=== PATIENT | female | born 1970 | race Caucasian/White ===

== ENCOUNTER 2022-03-26 05:35 | Emergency (ER) | payer OTHER ==
[2022-03-26 05:47] VITALS: BP 120/81; PULSE 66; TEMP 97.6; BMI 38.2
[2022-03-26] MEDS ORDERED: FAMOTIDINE 20 MG/50 ML IVPB 20 MG/50 ML MG IVPB ONE (05:52)
[2022-03-26] MEDS ORDERED: ACETAMINOPHEN 1000 MG/100 ML BAG IVPB ONE (05:59)
[2022-03-26] MEDS ORDERED: ACETAMINOPHEN INJECTION 100 ML IVPB ONE (06:00)
[2022-03-26] MEDS ORDERED: FAMOTIDINE 10 MG/ML VIAL IVPB ONE (06:00)
[2022-03-26 07:00] LABS: BASO % 0.5 % (0-2.0); EOS % 1.2 % (0-4.5); HEMATOCRIT 37.5 % (32.4-45.2); HEMOGLOBIN 12.9 GM/dL (10.7-15.3); LYMPH % 28.1 % (8-40); MCH 28.7 pg (25.7-33.7); MCHC 34.4 g/dl (32.0-36.0); MEAN CELL VOLUME 83.3 fl (80-96); MEAN PLT VOLUME 7.2 fl (7.5-11.1); MONO % 6.4 % (3.8-10.2); NEUT % 63.8 % (42.8-82.8); PLATELET COUNT 230 10^3/uL (134-434); RDW 13.6 % (11.6-15.6); WHITE BLOOD COUNT 5.7 K/mm3 (4.0-10.0)
[2022-03-26 07:08] LABS: INR 0.94 (0.83-1.09); PROTHROMBIN TIME (PATIENT) 10.8 SEC (9.7-13.0)
[2022-03-26 07:10] LABS: ACTIVATED PTT 34.2 SECONDS (25.2-36.5)
[2022-03-26 07:18] LABS: CALCIUM 8.5 mg/dL (8.5-10.1)
[2022-03-26 07:19] LABS: ALBUMIN 3.8 g/dl (3.4-5.0); BLOOD UREA NITROGEN 12.7 mg/dL (7-18); MAGNESIUM 2.1 mg/dL (1.8-2.4)
[2022-03-26 07:22] LABS: CREATININE 0.7 mg/dL (0.55-1.3)
[2022-03-26 07:23] LABS: TOT PROT 6.9 g/dl (6.4-8.2)
[2022-03-26 07:25] LABS: BILIRUBIN,TOTAL 0.4 mg/dL (0.2-1)
[2022-03-26] MEDS ORDERED: SODIUM CHLORIDE 1,000 ML IV STA (07:41)
[2022-03-26 08:48] LABS: URINE APPEARANCE CLOUDY; URINE BILIRUBIN NEGATIVE (NEGATIVE); URINE COLOR YELLOW; URINE GLUCOSE (UA) NEGATIVE (NEGATIVE); URINE KETONE NEGATIVE (NEGATIVE); URINE LEUK ESTERASE NEGATIVE (NEGATIVE); URINE NITRITE NEGATIVE (NEGATIVE); URINE PROTEIN NEGATIVE (NEGATIVE); URINE UROBILINOGEN 0.2 mg/dL (0.2-1.0)
== END 2022-03-26 10:58 | disposition home or self-care (01) ==
LOC: JER 05:35
PROC: 3E033GC Introduction of Other Therapeutic Substance into Peripheral Vein, Percutaneous Approach (ICD-10-PCS; principal; 2022-03-26)
DX: R10.13 Epigastric pain (principal)
CPT/HCPCS: 36415; 71046-TC-FY; 74177-TC; 80053; 81003; 83690; 83735; 84484; 84703; 85025; 85610; 85730; 93005; 93010; 99285-25; Q9967

== ENCOUNTER 2022-05-25 15:50 | Emergency (ER) | payer OTHER ==
[2022-05-25 16:16] VITALS: BP 117/50; PULSE 83; TEMP 98.1; BMI 39.4
== END 2022-05-25 19:10 | disposition home or self-care (01) ==
LOC: JER 15:50 → JERFT 15:50
DX: B02.9 Zoster without complications (principal)
CPT/HCPCS: 99283-25

== ENCOUNTER 2022-06-01 11:03 | Emergency (ER) | payer OTHER ==
[2022-06-01 11:09] VITALS: BP 132/84; PULSE 70; TEMP 98; BMI 39.4
== END 2022-06-01 12:01 | disposition home or self-care (01) ==
LOC: JERFT 11:03
DX: L03.012 Cellulitis of left finger (principal); I10 Essential (primary) hypertension
CPT/HCPCS: 99281-25

== ENCOUNTER 2022-08-27 05:24 | Emergency (ER) | payer OTHER ==
[2022-08-27] MEDS ORDERED: ACETAMINOPHEN 325 MG TABLET (FP) PO ONE (05:40)
[2022-08-27] MEDS ORDERED: LIDOCAINE 5% TOPICAL PATCH TP ONE (05:40)
[2022-08-27 06:07] VITALS: BP 137/76; PULSE 88; RESP 16; TEMP 97.9; BMI 39.4
[2022-08-27] MEDS ORDERED: LIDOCAINE 5% TOPICAL PATCH ONE (06:12)
[2022-08-27] MEDS ORDERED: ACETAMINOPHEN 325 MG TABLET (FP) ONE (06:12)
[2022-08-27] MEDS ORDERED: LIDOCAINE PATCH REMOVAL MC SCH (22:00)
== END 2022-08-27 08:05 | disposition home or self-care (01) ==
LOC: JER 05:24
DX: M25.562 Pain in left knee (principal)
CPT/HCPCS: 73562-TC-LT-FY; 99283-25

== ENCOUNTER 2022-12-04 07:50 | Emergency (ER) | payer OTHER ==
[2022-12-04 08:00] VITALS: BP 141/88; PULSE 98; RESP 18; TEMP 99.3; BMI 42.9
== END 2022-12-04 08:50 | disposition home or self-care (01) ==
LOC: JER 07:50
DX: U07.1 COVID-19 (principal)
CPT/HCPCS: 71046-TC-FY; 99283-25

== ENCOUNTER 2023-01-24 08:56 | Emergency (ER) | payer OTHER ==
[2023-01-24 09:07] VITALS: BP 141/76; PULSE 67; RESP 18; TEMP 98.1; BMI 39.4
[2023-01-24] MEDS ORDERED: ONDANSETRON 4 MG/2 ML VIAL IVPUSH ONE ×2 (09:59→12:19)
[2023-01-24] MEDS ORDERED: SODIUM CHLORIDE 0.9% 500 ML INFUS.BAG IV ONE ×2 (10:32→12:19)
[2023-01-24] MEDS ORDERED: ONDANSETRON 4 MG/2 ML VIAL ONE ×2 (10:38→12:44)
[2023-01-24 11:17] LABS: BASO % 0.3 % (0-2.0); EOS % 0.7 % (0-4.5); HEMATOCRIT 37.8 % (32.4-45.2); HEMOGLOBIN 13.2 GM/dL (10.7-15.3); LYMPH % 17.6 % (8-40); MCH 29.2 pg (25.7-33.7); MCHC 34.8 g/dl (32.0-36.0); MEAN CELL VOLUME 83.9 fl (80-96); MEAN PLT VOLUME 6.8 fl (7.5-11.1); MONO % 2.9 % (3.8-10.2); NEUT % 78.5 % (42.8-82.8); PLATELET COUNT 236 10^3/uL (134-434); RDW 14.1 % (11.6-15.6); WHITE BLOOD COUNT 6.8 K/mm3 (4.0-10.0)
[2023-01-24 11:40] LABS: CALCIUM 9.1 mg/dL (8.5-10.1)
[2023-01-24 11:41] LABS: ALBUMIN 4.1 g/dl (3.4-5.0); BLOOD UREA NITROGEN 15.4 mg/dL (7-18)
[2023-01-24 11:44] LABS: CREATININE 0.7 mg/dL (0.55-1.3)
[2023-01-24 11:45] LABS: BILIRUBIN,TOTAL 0.5 mg/dL (0.2-1); TOT PROT 7.8 g/dl (6.4-8.2)
[2023-01-24] MEDS ORDERED: MECLIZINE HCL 12.5 MG TABLET PO ONE (12:19)
[2023-01-24] MEDS ORDERED: MECLIZINE HCL 12.5 MG TABLET ONE (12:43)
== END 2023-01-24 14:06 | disposition home or self-care (01) ==
LOC: JER 08:56
PROC: 3E033GC Introduction of Other Therapeutic Substance into Peripheral Vein, Percutaneous Approach (ICD-10-PCS; principal; 2023-01-24)
DX: R42 Dizziness and giddiness (principal); R11.2 Nausea with vomiting, unspecified
CPT/HCPCS: 36415; 80053; 83690; 85025; 93005; 93010; 99284-25

== ENCOUNTER 2023-04-26 08:48 | Emergency (ER) | payer OTHER ==
[2023-04-26 08:56] VITALS: TEMP 97.1; BMI 39.4
[2023-04-26] MEDS ORDERED: ONDANSETRON 4 MG/2 ML VIAL IVPUSH ONE (10:02)
[2023-04-26] MEDS ORDERED: MECLIZINE HCL 25 MG TABLET (FP) PO ONE (10:02)
[2023-04-26] MEDS ORDERED: SODIUM CHLORIDE 0.9% 500 ML INFUS.BAG IV ONE (10:02)
[2023-04-26] MEDS ORDERED: MECLIZINE HCL 25 MG TABLET (FP) ONE (10:06)
[2023-04-26] MEDS ORDERED: ONDANSETRON 4 MG/2 ML VIAL ONE (10:06)
[2023-04-26 10:25] LABS: BASO % 0.7 % (0-2.0); EOS % 0.4 % (0-4.5); HEMATOCRIT 38.7 % (32.4-45.2); HEMOGLOBIN 13.3 GM/dL (10.7-15.3); MCH 28.3 pg (25.7-33.7); MCHC 34.5 g/dl (32.0-36.0); MEAN CELL VOLUME 82.2 fl (80-96); MEAN PLT VOLUME 6.8 fl (7.5-11.1); NEUT % 72.9 % (42.8-82.8); PLATELET COUNT 258 10^3/uL (134-434)
[2023-04-26 10:36] LABS: POTASSIUM 5.9 mmol/L (3.5-5.1)
[2023-04-26 10:38] LABS: CALCIUM 8.9 mg/dL (8.5-10.1)
[2023-04-26 10:39] LABS: BLOOD UREA NITROGEN 14.2 mg/dL (7-18)
[2023-04-26 10:42] LABS: CREATININE 0.7 mg/dL (0.55-1.3)
[2023-04-26 10:43] LABS: BILIRUBIN,TOTAL 0.5 mg/dL (0.2-1)
[2023-04-26 10:44] LABS: TOT PROT 7.8 g/dl (6.4-8.2)
[2023-04-26 11:35] VITALS: BP 116/73; PULSE 63; RESP 18
== END 2023-04-26 11:43 | disposition home or self-care (01) ==
LOC: JER 08:48
PROC: 3E033GC Introduction of Other Therapeutic Substance into Peripheral Vein, Percutaneous Approach (ICD-10-PCS; principal; 2023-04-26)
DX: R42 Dizziness and giddiness (principal); R11.0 Nausea; R19.7 Diarrhea, unspecified
CPT/HCPCS: 36415; 80053; 85025; 93005; 93010; 99284-25

== ENCOUNTER 2023-10-04 05:27 | Emergency (ER) | payer OTHER ==
[2023-10-04 05:39] VITALS: BP 119/75; PULSE 78; RESP 18; TEMP 98.4; BMI 39.4
[2023-10-04 06:35] LABS: BASO % 0.6 % (0-2.0); EOS % 1.2 % (0-4.5); HEMATOCRIT 37.9 % (32.4-45.2); HEMOGLOBIN 12.6 GM/dL (10.7-15.3); LYMPH % 26.7 % (8-40); MCH 27.9 pg (25.7-33.7); MCHC 33.4 g/dl (32.0-36.0); MEAN CELL VOLUME 83.7 fl (80-96); MEAN PLT VOLUME 6.7 fl (7.5-11.1); MONO % 6.6 % (3.8-10.2); NEUT % 64.9 % (42.8-82.8); PLATELET COUNT 257 10^3/uL (134-434); RBC 4.52 M/mm3 (3.60-5.2); RDW 13.8 % (11.6-15.6); WHITE BLOOD COUNT 6.1 K/mm3 (4.0-10.0)
[2023-10-04 06:54] LABS: POTASSIUM 4.1 mmol/L (3.5-5.1)
[2023-10-04 06:56] LABS: CALCIUM 8.5 mg/dL (8.5-10.1)
[2023-10-04 06:57] LABS: ALBUMIN 3.7 g/dl (3.4-5.0); BLOOD UREA NITROGEN 12.9 mg/dL (7-18)
[2023-10-04 07:00] LABS: CREATININE 0.8 mg/dL (0.55-1.3)
[2023-10-04 07:02] LABS: BILIRUBIN,TOTAL 0.5 mg/dL (0.2-1)
== END 2023-10-04 10:06 | disposition home or self-care (01) ==
LOC: JER 05:27
DX: M54.2 Cervicalgia (principal); R22.1 Localized swelling, mass and lump, neck; D17.0 Benign lipomatous neoplasm of skin and subcutaneous tissue of head, face and neck
CPT/HCPCS: 36415; 70491-TC; 80053; 85025; 99285-25; Q9967

== ENCOUNTER 2024-03-13 16:48 | Emergency (ER) | payer OTHER ==
[2024-03-13 16:59] VITALS: BP 135/72; PULSE 87; RESP 18; TEMP 98; BMI 40.3
== END 2024-03-13 18:21 | disposition home or self-care (01) ==
LOC: JERFT 16:48
DX: M70.22 Olecranon bursitis, left elbow (principal); M25.422 Effusion, left elbow
CPT/HCPCS: 99283-25

== ENCOUNTER 2024-10-08 17:19 | Emergency (ER) | payer OTHER ==
[2024-10-08 17:23] VITALS: BP 141/83; PULSE 90; RESP 18; TEMP 97.8; BMI 39.4
[2024-10-08] MEDS ORDERED: KETOROLAC TROMETHAMINE 30 MG/1 ML VIAL ONE (17:47)
[2024-10-08] MEDS: KETOROLAC TROMETHAMINE 30 MG/1 ML VIAL IM ONE (17:52)
== END 2024-10-08 19:44 | disposition home or self-care (01) ==
LOC: JER 17:19
PROC: 3E0133Z Introduction of Anti-inflammatory into Subcutaneous Tissue, Percutaneous Approach (ICD-10-PCS; principal; 2024-10-08)
DX: M71.21 Synovial cyst of popliteal space [Baker], right knee (principal)
CPT/HCPCS: 73562-TC-RT-FY; 93971-TC; 99284-25

== ENCOUNTER 2025-01-12 04:56 | Emergency (ER) | payer OTHER ==
[2025-01-12 05:01] VITALS: RESP 18; TEMP 97.3; BMI 39.4
[2025-01-12] MEDS ORDERED: ACETAMINOPHEN INJECTION 100 ML ONE (05:57)
[2025-01-12] MEDS ORDERED: FAMOTIDINE 20 MG/50 ML IVPB 20 MG/50 ML MG IVPB ONE (05:58)
[2025-01-12] MEDS: ACETAMINOPHEN 1000 MG/100 ML BAG IVPB ONE (06:28)
[2025-01-12] MEDS: FAMOTIDINE 20 MG/50 ML IVPB 20 MG/50 ML MG IVPB ONE (06:29)
[2025-01-12] MEDS: LACTATED RINGERS SOLUTION 1000 ML INFUS.BAG IV ONE (06:29)
[2025-01-12 06:34] LABS: BASO % 0.4 % (0-2.0); EOS % 0.6 % (0-4.5); HEMATOCRIT 39.7 % (32.4-45.2); HEMOGLOBIN 13.3 GM/dL (10.7-15.3); LYMPH % 18.7 % (8-40); MCH 28.2 pg (25.7-33.7); MCHC 33.5 g/dl (32.0-36.0); MONO % 5.6 % (3.8-10.2); NEUT % 74.7 % (42.8-82.8); PLATELET COUNT 250 10^3/uL (134-434); RBC 4.72 M/mm3 (3.60-5.2); RDW 13.6 % (11.6-15.6); WHITE BLOOD COUNT 8.2 K/mm3 (4.0-10.0)
[2025-01-12] MEDS ORDERED: MAG HYDROX/AL HYDROX/SIMETH 30 ML UNIT-DOSE CUP ONE (06:52)
[2025-01-12 06:54] LABS: POTASSIUM 4.2 mmol/L (3.5-5.1)
[2025-01-12 06:56] LABS: CALCIUM 9.3 mg/dL (8.5-10.1)
[2025-01-12 06:57] LABS: ALBUMIN 4.2 g/dl (3.4-5.0); MAGNESIUM 1.8 mg/dL (1.8-2.4)
[2025-01-12 07:01] LABS: BILIRUBIN,TOTAL 0.5 mg/dL (0.2-1); TOT PROT 7.5 g/dl (6.4-8.2)
[2025-01-12] MEDS: MAG HYDROX/AL HYDROX/SIMETH 30 ML UNIT-DOSE CUP PO ONE (07:03)
[2025-01-12 08:48] VITALS: BP 122/69; PULSE 66
== END 2025-01-12 09:30 | disposition home or self-care (01) ==
LOC: JER 04:56
PROC: 3E033GC Introduction of Other Therapeutic Substance into Peripheral Vein, Percutaneous Approach (ICD-10-PCS; principal; 2025-01-12)
PROC: 3E033NZ Introduction of Analgesics, Hypnotics, Sedatives into Peripheral Vein, Percutaneous Approach (ICD-10-PCS; 2025-01-12)
DX: N20.0 Calculus of kidney (principal); R10.84 Generalized abdominal pain
CPT/HCPCS: 36415; 71045-TC-FY; 74177-TC; 80053; 83690; 83735; 84484; 85025; 93005; 93010; 99285-25; J0131; Q9967